=== PATIENT | female | born 1950 ===

== ENCOUNTER 2024-02-03 06:00 | Day surgery (SDC) | payer MEDICARE, OTHER, SELFPAY ==
[2024-02-03] VITALS (9 sets, daily range): BP systolic 120–145; BP diastolic 61–74; BMI 33.8
== END 2024-02-03 18:55 | disposition home or self-care (01) ==
LOC: GI 06:00
PROVIDERS: ATTENDING PHYSICIAN Internal Medicine Gastroenterology
DX: K31.7 Polyp of stomach and duodenum (principal)
CPT/HCPCS: 43237; 88305